=== PATIENT | male | born 1990 | race Two or more races ===

== ENCOUNTER 2022-01-27 18:05 | Emergency (ER) | payer OTHER ==
[~2022-01-27] VITALS: Ht 180.3 cm; Wt 74.6 kg
[2022-01-27 18:26] VITALS: BP 160/81
[2022-01-27] MEDS ORDERED: CEPH-510 PO ×2 (18:56→19:15)
[2022-01-27] MEDS ORDERED: IBUP600T27 PO ×2 (18:56→19:15)
[2022-01-27] MEDS ORDERED: BACDST PO ×2 (18:56→19:15)
== END 2022-01-27 21:02 | disposition left against medical advice (07) ==
LOC: ER 18:05
DX: L02.01 Cutaneous abscess of face (principal)

== ENCOUNTER 2022-02-21 23:22 | Emergency (ER) | payer MEDICAID, OTHER ==
[~2022-02-21] VITALS: Ht 177.8 cm; Wt 68.2 kg
[~2022-02-21 23:22] MED LIST: BACDST PO; CEPH-510 PO; IBUP600T27 PO
[2022-02-22] MEDS ORDERED: CEPH-510 PO (03:11)
[2022-02-22] MEDS ORDERED: SULF400T11 PO (03:11)
[2022-02-22 03:41] VITALS: BP 129/88
== END 2022-02-22 03:56 | disposition home or self-care (01) ==
LOC: ER 23:22
DX: L02.01 Cutaneous abscess of face (principal)

== ENCOUNTER 2022-07-23 16:53 | Emergency (ER) | payer OTHER ==
[~2022-07-23] VITALS: Ht 177.8 cm; Wt 76.8 kg
[~2022-07-23 16:53] MED LIST changes: +IBUP-1454 PO; -IBUP600T27 PO; +SULF400T11 PO
[2022-07-23 17:16] VITALS: BP 119/68
[2022-07-23] MEDS ORDERED: ACET500T58 PO (19:23)
[2022-07-23] MEDS ORDERED: CEPH500C PO (19:23)
[2022-07-23] MEDS ORDERED: SULF800T23 PO (19:23)
[2022-07-23] MEDS ORDERED: cefTRIAXone SOD 1,000 MG VL IM ONE (19:30)
== END 2022-07-23 19:27 | disposition home or self-care (01) ==
LOC: ER 16:53
DX: J34.0 Abscess, furuncle and carbuncle of nose (principal); F15.10 Other stimulant abuse, uncomplicated

== ENCOUNTER 2024-03-25 09:36 | Emergency (ER) | payer MEDICAID, OTHER ==
[~2024-03-25] VITALS: Ht 180.3 cm; Wt 76.6 kg
[~2024-03-25 09:36] MED LIST changes: +ACET500T58 PO; +CEPH500C PO; +SULF800T23 PO
[2024-03-25 10:14] VITALS: BP 123/76; PULSE 89; RESP 16; TEMP 97.4; O2SAT 98
[2024-03-25] MEDS: HYDROcodone-ACET 5/325MG TAB PO ONE (10:20)
[2024-03-25] MEDS: ACYCLOVIR 400 MG TAB PO ONE (10:20)
[2024-03-25] MEDS: GABAPENTIN 300 MG CAP PO ONE (10:21)
[2024-03-25] MEDS: predniSONE 20 MG TAB PO ONE (10:21)
[2024-03-25] MEDS ORDERED: VALA1TAB PO (10:43)
[2024-03-25] MEDS ORDERED: PRED20TA2 PO (10:43)
--- NOTE | 2024-03-25 10:43 | ED.PDOC ---
History of Present Illness HPI Comments 33M previously healthy presents with 3 days of /10 on left-sided chest wall pain associated with a rash. Patient denies any trauma or any allergic contacts that he is aware of. He denies any fever chills nausea vomiting diarrhea dysuria or polyuria. Chief Complaint: Rash Time Seen by MD: 09:58 Primary Care Provider: NONE Allergies: Coded Allergies: NO KNOWN ALLERGIES (Unverified , 01/27/22) Home Meds Active Scripts Acetaminophen (Acetaminophen) 500 Mg Tab, 500 MG PO QIDP, #30 TAB 0 Refills Prov:CATHERINE HUANG 07/23/22 Sulfamethoxazole W/Trimethopri (Trimethoprim/Sulfamethoxa) 1 Tab Tab, 1 TAB PO BID for 7 Days, #14 TAB 0 Refills Prov:CATHERINE HUANG 07/23/22 Cephalexin Monohydrate (Cephalexin) 500 Mg Cap, 1 CAP PO BID for 7 Days, #14 CAP 0 Refills Prov:CATHERINE HUANG 07/23/22 Sulfamethoxazole-Trimethoprim (Bactrim) 1 Tab Tab, 1 TAB PO BID for 10 Days, #20 TAB 0 Refills Prov:YUVAL DISLA 02/22/22 Cephalexin ( Keflex 500) 500 Mg Cap, 1 CAP PO QID for 10 Days, #40 CAP 0 Refills Prov:YUVAL DISLA PA 02/22/22 Ibuprofen (Ibuprofen) 600 Mg Tab, 1 TAB PO TID, #30 TAB Prov:COCO COWART PAC 01/27/22 Cephalexin ( Keflex 500) 500 Mg Cap, 1 CAP PO QID for 10 Days, #40 CAP Prov:COCO COWART PAC 01/27/22 Sulfamethoxazole W/Trimethopri (Bactrim Ds Tablet) 1 Tab Tb, 1 TAB PO BID for 10 Days, #20 TAB Prov:COCO COWART PAC 01/27/22 Information Source: Patient Mode of Arrival: Ambulatory Past Medical History PAST MEDICAL HISTORY: Denies Surgical History: Denies all surgeries Family History Family History: Unknown Social History Smoker: Other Alcohol: Denies ETOH Use Drugs: Methamphetamine Lives In: Home All Other Systems: Reviewed and Negative Physical Exam General Appearance: Mild Distress HEENT: Normal ENT Inspection Neck: Normal Inspection Respiratory: No Respiratory Distress Cardiovascular: No Edema Breast Exam: Deferred Gastrointestinal: Non Tender Genitalia: Deferred Pelvic: Deferred Rectal: Deferred Extremities: Normal range of motion Neurologic: No Motor Deficits Cerebellar Function: NOT DONE Reflexes: NOT DONE Skin: Other (Pustular rash in a dermatomal distribution along his left chest wall) Lymphatic: NOT DONE Was a procedure done? Was a procedure done?: No Differential Dx Considerations may include: Shingles, allergic reaction X-Ray, Labs, Meds, VS Vital Signs Date Time Temp Pulse Resp B/P (MAP) Pulse Ox O2 Delivery O2 Flow Rate FiO2 03/25/24 10:14 97.4 89 16 123/76 (92) 98 97.4 03/25/24 10:14 89 16 98 Room Air 03/25/24 09:59 97.4 89 16 123/76 (92) 98 Current Medications Medications (Trade) Dose Ordered Sig/R[place]hawn Route Start Time Stop Time Status Last Admin Acyclovir (Zovirax Tablet) 800 mg ONCE ONCE PO 03/25/24 10:00 03/25/24 10:02 DC 03/25/24 10:20 Acetaminophen/ Hydrocodone Bitart (Wing 5/325MG Tab) 1 tab ONCE ONCE PO 03/25/24 10:00 03/25/24 10:02 DC 03/25/24 10:20 Prednisone 40 mg ONCE ONCE PO 03/25/24 10:00 03/25/24 10:02 DC 03/25/24 10:21 Gabapentin (Neurontin Capsule) 300 mg ONCE ONCE PO 03/25/24 10:00 03/25/24 10:02 DC 03/25/24 10:21 Time of 1ST Reevaluation: 10:38 Reevaluation 1ST: Unchanged Patient Education/Counseling: Diagnosis, Treatment Family Education/Counseling: No Family Present Departure 1 Departure Time of Disposition: 10:38 (The my judgment the patient has shingles. We will empirically cover patient for symptoms and have him follow up with his outpatient doctor) Impression: Primary Impression: Shingles Qualified Codes: B02.9 - Zoster without complications Disposition: 01 HOME / SELF CARE / HOMELESS Condition: Stable Additional Instructions: You have shingles. This is the chicken pox virus. You were prescribed antiviral medications. Please take as directed. For pain you can take the followinam: Ibuprofen 400mg with food Noon: Acetaminophen 1000mg 4pm: Ibuprofen 400mg with food 8pm: Acetaminophen 1000mg You should follow up with your regular doctor within one week to ensure you are doing better. If your symptoms worsen or you have any other concerns then please return to the ER. e-Prescriptions Prednisone (Prednisone) 20 Mg Tab 40 MG PO DAILY for 5 Days, #10 MG Prov: JASON SHAHID MD 03/25/24 Valacyclovir Hcl (Valtrex) 1 Gm Tab 1 TAB PO TID for 7 Days, #21 TAB Prov: JASON SHAHID MD 03/25/24 Discharged With: Self Critical Care Note Critical Care Time?: No Stability Stability form required: No Heart Score Heart Score: Heart Score Response (Comments) Value History N/A 0 EKG N/A 0 Age N/A 0 Risk Factors N/A 0 Troponin N/A 0 Total 0 JASON SHAHID MD Mar 25, 2024 10:43
== END 2024-03-25 10:44 | disposition home or self-care (01) ==
LOC: ER 09:36
DX: B02.9 Zoster without complications (principal); Z79.1 Long term (current) use of non-steroidal anti-inflammatories (NSAID); Z79.899 Other long term (current) drug therapy
CPT/HCPCS: 99284; J7512